=== PATIENT | male | born 1960 | race Caucasian/White ===

== ENCOUNTER 2025-05-12 21:54 | Inpatient (IN) | payer SELFPAY ==
[~2025-05-12] VITALS: Ht 157.5 cm; Wt 68.0 kg
[2025-05-12] MEDS: SODIUM CHLORIDE 0.9% 2,000 ML IV ONE (22:50)
[2025-05-12 22:54] LABS: BASOPHILS % 0.4 % (0.0-2.0); EOSINOPHILS % 0.5 % (0.0-5.0); HEMATOCRIT. 38.3 % (42.0-52.0); HEMOGLOBIN. 12.8 g/dL (14.0-18.0); LYMPHOCYTES % 20.7 % (20.0-50.0); MEAN PLATELET VOLUME 8.5 fl (7.4-10.4); MONOCYTES % 6.6 % (2.0-8.0); NEUTROPHILS % 71.8 % (40.0-76.0); PLATELET 176 x1000/uL (130-400); RED BLOOD CELL COUNT 4.33 mill/uL (4.7-6.1); RED CELL DISTRIBUTION WIDTH 13.8 % (11.6-14.6)
[2025-05-12 23:04] LABS: CLARITY URINE CLEAR (CLEAR); COLOR URINE ORANGE (YELLOW); GLUCOSE URINE NEGATIVE (NEGATIVE); KETONES URINE TRACE (NEGATIVE); LEUKOCYTE ESTERASE URINE TRACE (NEGATIVE); NITRITE URINE NEGATIVE (NEGATIVE); OCCULT BLOOD URINE NEGATIVE (NEGATIVE); PH URINE 5.5 (4.5-8.0); PROTEIN URINE TRACE (NEGATIVE); SPECIFIC GRAVITY URINE 1.036 (1.005-1.030); UROBILINOGEN URINE 1.0 E.U./dL (0.2-1.0)
[2025-05-12 23:07] LABS: CREATININE 1.0 mg/dL (0.6-1.3); UREA NITROGEN BLOOD 26 mg/dL (9-23)
[2025-05-12 23:11] LABS: RBC URINE 0-2 /hpf (0-2)
[2025-05-12] MEDS: MORPHINE SULFATE 4 MG/ML INJ (FOR IV/IM USE) IV ONE (23:11)
[2025-05-12] MEDS: ONDANSETRON HCL 4MG/2ML INJ IV ONE (23:11)
[2025-05-12 23:12] LABS: BACTERIA URINE TRACE; SQUAMOUS EPITHELIAL CELL URINE RARE /lpf (RARE/1+)
[2025-05-13] MEDS ORDERED: IOHEXOL-350 100 ML BOTTLE ONE (00:32)
[2025-05-13 04:00] VITALS: BP 137/79; PULSE 53; RESP 16; TEMP 36.3; O2SAT 98
[2025-05-13 05:16] VITALS: BP 137/79; PULSE 53; RESP 16; TEMP 36.3624
[2025-05-13 08:00] VITALS: BP 130/66; PULSE 52; RESP 18; TEMP 35.9; O2SAT 99
[2025-05-13] MEDS ORDERED: CLONIDINE 0.1MG TABLET PO PRN (08:00)
[2025-05-13] MEDS ORDERED: ACETAMINOPHEN 325MG TABLET PO PRN (08:00)
[2025-05-13] MEDS ORDERED: MAGNESIUM/ALUMINUM HYDROXIDE/SIMETHICONE 30ML UDC PO PRN (08:00)
[2025-05-13] MEDS ORDERED: ONDANSETRON HCL 4MG/2ML INJ IV PRN (08:00)
[2025-05-13] MEDS ORDERED: HYDROCODONE/ACETAMINOPHEN 5/325MG TABLET PO PRN (08:00)
[2025-05-13] MEDS: SODIUM CHLORIDE 0.9% 1,000 ML IV SCH (08:30)
[2025-05-13] MEDS ORDERED: NALOXONE HCL 0.4MG/ML VIAL IV PRN (08:30)
[2025-05-13] MEDS: PANTOPRAZOLE SODIUM 40 MG/VIAL IV SCH (08:36)
[2025-05-13] MEDS: ENOXAPARIN 40MG/0.4ML SYR SUBCUT SCH (08:53)
[2025-05-13 11:12] LABS: *AMPHETAMINES SCREEN URINE NEGATIVE (NEGATIVE); *BARBITURATES SCREEN URINE NEGATIVE (NEGATIVE); *BENZODIAZEPINES SCREEN URINE NEGATIVE (NEGATIVE); *COCAINE SCREEN URINE NEGATIVE (NEGATIVE); CANNABINOID URINE SCREEN NEGATIVE (NEGATIVE); ECSTASY MDMA SCREEN URINE NEGATIVE (NEGATIVE); METHADONE URINE SCREEN NEGATIVE (NEGATIVE); OPIATES URINE SCREEN NEGATIVE (NEGATIVE); PHENCYCLIDINE URINE SCREEN NEGATIVE (NEGATIVE)
[2025-05-13 11:59] LABS: HEPATITIS C AB NON REACTIVE (Neg) (Negative)
[2025-05-13 12:00] VITALS: BP 124/73; PULSE 66; RESP 18; TEMP 36.5; O2SAT 97
[2025-05-13 16:00] VITALS: BP_SYST 124; BP_SYST 134; BP_DIAS 71; BP_DIAS 73; PULSE 66; RESP 18; TEMP 36.5; O2SAT 97
[2025-05-13 20:00] VITALS: BP 118/65; PULSE 60; RESP 16; TEMP 36.1; O2SAT 98
[2025-05-13] MEDS ORDERED: ZOLPIDEM TARTRATE 5MG TABLET PO PRN (21:00)
[2025-05-13 22:41] LABS: TROPONIN I HIGH SENSITIVITY 74 ng/L (3.0-53)
[2025-05-14] VITALS: BP 126/73; PULSE 72; RESP 16; TEMP 36.1; O2SAT 97
[2025-05-14 04:00] VITALS: BP 113/68; PULSE 66; RESP 16; TEMP 36.3; O2SAT 96
[2025-05-14] MEDS: MORPHINE SULFATE 2 MG/ML INJ (NOT FOR IM USE) IV PRN (05:30)
[2025-05-14 06:02] LABS: CREATININE 0.7 mg/dL (0.6-1.3)
[2025-05-14 06:04] LABS: UREA NITROGEN BLOOD 12 mg/dL (9-23)
[2025-05-14 06:39] LABS: TROPONIN I HIGH SENSITIVITY 67 ng/L (3.0-53)
[2025-05-14 06:42] LABS: BASOPHILS % 0.5 % (0.0-2.0); EOSINOPHILS % 1.8 % (0.0-5.0); HEMATOCRIT. 37.0 % (42.0-52.0); HEMOGLOBIN. 12.3 g/dL (14.0-18.0); LYMPHOCYTES % 25.5 % (20.0-50.0); MEAN PLATELET VOLUME 9.3 fl (7.4-10.4); MONOCYTES % 6.5 % (2.0-8.0); NEUTROPHILS % 65.7 % (40.0-76.0); PLATELET 145 x1000/uL (130-400); RED BLOOD CELL COUNT 4.19 mill/uL (4.7-6.1); RED CELL DISTRIBUTION WIDTH 14.0 % (11.6-14.6)
[2025-05-14 08:00] VITALS: BP 127/77; PULSE 58; RESP 18; TEMP 36.2; O2SAT 99
[2025-05-14] MEDS ORDERED: HYDR-4001 MT (13:21)
[2025-05-14 13:58] VITALS: BP 150/87; PULSE 60; TEMP 98.2; O2SAT 100
== END 2025-05-14 15:05 | disposition home or self-care (01) | DRG 347 ==
LOC: ER 21:54 → 8WST 05-13 02:47 → EDBEDREQTM 05-13 03:01 → EDBEDREQ 05-13 03:01 → ENRESERV 05-13 03:21
PROVIDERS: ADMIT Internal Medicine; ATTEND Internal Medicine
DX: S32.058A Other fracture of fifth lumbar vertebra, initial encounter for closed fracture (principal); I10 Essential (primary) hypertension; W14.XXXA Fall from tree, initial encounter; Y93.89 Activity, other specified; Y92.89 Other specified places as the place of occurrence of the external cause; Y99.8 Other external cause status
CPT/HCPCS: 36415; 71275; 72148; 74174; 80048; 80305; 81003; 82962; 84443; 84484; 85025; 86705; 86850; 86900; 87340; 93970; 97162; 99291; J1650; J2270; J2405; J2470; J7030; Q9967